=== PATIENT | male | born 1940 | race Caucasian/White ===

== ENCOUNTER → 2024-03-15 13:55 | Outpatient (REF) | payer MEDICARE, SELFPAY | LOC: RCS 13:55 | PROVIDERS: ATTENDING PHYSICIAN Family Medicine | DX: I34.0 Nonrheumatic mitral (valve) insufficiency (principal) | CPT/HCPCS: 93306 ==

== ENCOUNTER → 2025-02-22 09:00 | Outpatient (REF) | payer MEDICARE, SELFPAY | LOC: RCS 09:00 | PROVIDERS: ATTENDING PHYSICIAN Family Medicine | DX: I34.0 Nonrheumatic mitral (valve) insufficiency (principal) | CPT/HCPCS: 93306 ==

== ENCOUNTER 2025-09-15 13:04 | Outpatient (REF) | payer MEDICARE, SELFPAY | END 2025-09-15 23:59 | disposition home or self-care (01) | LOC: WOUND 13:04 | PROVIDERS: ATTENDING PHYSICIAN Registered Nurse; FAMILY PHYSICIAN Nurse Practitioner Family | DX: S91.302A Unspecified open wound, left foot, initial encounter (principal); L03.116 Cellulitis of left lower limb; E78.2 Mixed hyperlipidemia; X58.XXXA Exposure to other specified factors, initial encounter | CPT/HCPCS: 11042; 99203 ==

== ENCOUNTER 2025-09-23 08:46 | Outpatient (REF) | payer MEDICARE, SELFPAY | END 2025-09-23 23:59 | disposition home or self-care (01) | LOC: WOUND 08:46 | PROVIDERS: ATTENDING PHYSICIAN Registered Nurse; FAMILY PHYSICIAN Nurse Practitioner Family | DX: S91.302A Unspecified open wound, left foot, initial encounter (principal); L03.116 Cellulitis of left lower limb; E78.2 Mixed hyperlipidemia; X58.XXXA Exposure to other specified factors, initial encounter | CPT/HCPCS: 97597 ==